=== PATIENT | female | born 1950 | race Two or more races ===

== ENCOUNTER 2016-11-29 06:09 | Day surgery (SDC) | payer BC ==
[~2016-11-29] VITALS: Ht 154.9 cm; Wt 67.1 kg
[~2016-11-29 06:09] MED LIST: ATV1 PO; B-50 COMPLEX OR; BIOTIN1000 MCG OR; BONIVA150 MG PO; ENBREL25 MG IJ; FLEX PO; FOLIC PO; MOBIC15 MG PO; NAP500 PO; NORCO1 TA1 PO; P5 PO; PLAQ200B PO; RESTASIS OPH; SYN1 PO; TRAZ50 PO; TREXALL10 MG PO; VAGIFEM10 MCG V; VITAMIN D31000 UNIT PO; VITC500 PO; ZANTAC150 MG PO
== END 2016-11-29 10:31 | disposition home or self-care (01) ==
LOC: SDC 06:09
PROVIDERS: Ophthalmology
PROC: 08RK3JZ Replacement of Left Lens with Synthetic Substitute, Percutaneous Approach (ICD-10-PCS; principal; 2016-11-29 07:45)
DX: H25.12 Age-related nuclear cataract, left eye (principal); M06.9 Rheumatoid arthritis, unspecified; M79.7 Fibromyalgia; K21.9 Gastro-esophageal reflux disease without esophagitis; Z88.5 Allergy status to narcotic agent; Z79.899 Other long term (current) drug therapy; Z98.890 Other specified postprocedural states
CPT/HCPCS: 85014; 85018; 93005; C1780; J2150; J2405; J3010